=== PATIENT | female | born 1995 | race African-American/Black ===

== ENCOUNTER 2017-04-10 16:25 | Inpatient (IN) | payer OTHER ==
[2017-04-10] MEDS ORDERED: DEXTROSE 5%-LACTATED RINGERS 500 ML IV SCH ×2 (19:15→20:15)
[2017-04-10] MEDS ORDERED: ELECTROLYTE-148 SOLN 500 ML IV ONE (23:00)
[2017-04-10] MEDS ORDERED: CITRIC ACID/SODIUM CITRATE 30 ML UNIT-DOSE CUP PO ONE (23:30)
[2017-04-10 23:39] LABS: BASO % 0.2 % (0-2.0); HEMATOCRIT 31.7 % (32.4-45.2); HEMOGLOBIN 10.8 GM/dL (10.7-15.3); LYMPH % 24.8 % (8-40); MCH 30.8 pg (25.7-33.7); MCHC 34.1 g/dl (32.0-36.0); MEAN CELL VOLUME 90.5 fl (80-96); MEAN PLT VOLUME 7.6 fl (7.5-11.1); MONO % 9.9 % (3.8-10.2); NEUT % 63.1 % (42.8-82.8); PLATELET COUNT 258 K/MM3 (134-434); RDW 13.1 % (11.6-15.6); WHITE BLOOD COUNT 5.9 K/mm3 (4.0-10.0)
[2017-04-10] MEDS ORDERED: ONDANSETRON 4 MG/2 ML VIAL IVPUSH PRN (23:46)
[2017-04-10] MEDS ORDERED: morphine SULFATE/Preservative Free 0.5 MG/ML (1cc Syringe) EP ONE (23:46)
[2017-04-10] MEDS ORDERED: IBUPROFEN 800 MG/8 ML IJ IVPB PRN (23:48)
[2017-04-10 23:55] LABS: INR 0.9 (0.82-1.09); PROTHROMBIN TIME (PATIENT) 10.2 SEC (9.98-11.88)
[2017-04-10 23:56] VITALS: BMI 27.1
[2017-04-10 23:57] LABS: ACTIVATED PTT 24.7 SECONDS (26.9-34.4)
[2017-04-11] MEDS: ELECTROLYTE-148 SOLN 1,000 ML IV SCH
[2017-04-11 01:10] LABS: ANION GAP 9 (8-16); BLOOD UREA NITROGEN 3 mg/dL (7-18); CALCIUM 8.6 mg/dL (8.5-10.1); CHLORIDE 107 mmol/L (98-107); CO2 26 mmol/L (21-32); CREATININE 0.4 mg/dL (0.55-1.02); GLUCOSE,RANDOM 86 mg/dL (74-106); POTASSIUM 3.7 mmol/L (3.5-5.1); SODIUM 142 mmol/L (136-145)
--- NOTE | 2017-04-11 01:43 | HP ---
Past Medical History - Primary Care Physician PCP:: Yash Mott - Admission Chief Complaint: 39 weeks non reassuring FHR, for c/s History of Present Illness: 22 yo f edc by sono 04/16/17, c/o pelvic pressure and pain, multiple visit to L& D , cx clp, vx -4 mi , fhr cat 2, poor BTBv , induction vs c/s discussed , risks explained,requesting c/s declined induction History Source: Patient Limitations to Obtaining History: No Limitations - Past Medical History ...: 1 ...Para: 0 ...Term: 0 ...: 0 ...Spon : 0 ...Induced : 0 ...Multiple Gestation: 0 ...LMP: 07/10/16 ... Weeks Gestation by Dates: 39.1 ...EDC by Dates: 04/16/17 ...EDC by Sono: 04/16/17 Psych: Yes: Depression (on no meds) - Past Surgical History Hx Myomectomy: No Hx Transabdominal Cerclage: No - Smoking History Smoking history: Never smoked Have you smoked in the past 12 months: No - Alcohol/Substance Use Hx Alcohol Use: No - Social History Usual Living Arrangement: Yes: With Spouse Home Medications - Allergies Allergies/Adverse Reactions: Allergies Allergy/AdvReac Type Severity Reaction Status Date / Time No Known Allergies Allergy Verified 04/10/17 17:03 - Home Medications Home Medications: Ambulatory Orders Vit,Calc76/Iron/Folic [Pnv 29-1 Tablet] 1 tab PO DAILY 03/14/17 Review of Systems - Review of Systems Constitutional: reports: No Symptoms Eyes: reports: No Symptoms HENT: reports: No Symptoms Neck: reports: No Symptoms Cardiovascular: reports: No Symptoms Respiratory: reports: No Symptoms Gastrointestinal: reports: No Symptoms Genitourinary: reports: No Symptoms Breasts: reports: No Symptoms Reported Musculoskeletal: reports: No Symptoms Integumentary: reports: No Symptoms Neurological: reports: No Symptoms Endocrine: reports: No Symptoms Hematology/Lymphatic: reports: No Symptoms Psychiatric: reports: No Symptoms Physical Exam - Maternity Vital Signs: Vital Signs Temperature 99.5 F 04/10/17 23:31 Pulse Rate 102 H 04/10/17 23:31 Respiratory Rate 20 04/10/17 23:31 Blood Pressure 130/72 01/25/18 23:31 O2 Sat by Pulse Oximetry (%) Constitutional: Yes: Well Nourished, No Distress, Calm Eyes: Yes: WNL, Conjunctiva Clear, EOM Intact HENT: Yes: WNL, Atraumatic, Normocephalic Neck: Yes: WNL, Supple, Trachea Midline Cardiovascular: Yes: WNL, Regular Rate and Rhythm Breast(s): Yes: WNL - Abdominal Exam/OB Fundal Height: 40 Number of Fetuses: Single Presentation: Vertex Contractions: No Monitor Mode: External Heart Rate Location: [facility] Category: II Accelerations: None Decelerations: Variable - Vaginal Exam/OB Vaginal Bleediing: No Speculum Exam: No Dilatation (cm): closed Effacement (%): vx Amniotic Membrane Status: Intact Presentation: Vertex/Position Station: -4 - Physical Exam Musculoskeletal: Yes: WNL Extremities: Yes: WNL Edema: Yes Edema: LLE: Trace, RLE: Trace ...Motor Strength: WNL Psychiatric: Yes: WNL - Labs Lab Results: CBC, BMP 04/10/17 23:00 04/10/17 23:00 Hemorrhage Risk Assessment - Risk Factors Medium Risk Factors: Yes: None High Risk Factors: Yes: None Risk Score: 1 Risk Level: Medium Risk Problem List - Problems (1) with 39 completed weeks gestation Code(s): Z3A.39 - 39 WEEKS GESTATION OF (2) Non-reassuring heart rate or rhythm affecting management of fetus Code(s): ZMF3875 - Assessment/Plan c/s rba discussed
[2017-04-11] MEDS ORDERED: ceFAZolin SODIUM 1 GM VIAL ONE (01:50)
[2017-04-11] MEDS ORDERED: morphine SULFATE/Preservative Free 0.5 MG/ML (1cc Syringe) ONE (01:50)
[2017-04-11] MEDS ORDERED: METHYLERGONOVINE MALEATE 0.2 MG/1 ML AMP IM PRN (01:55)
[2017-04-11] MEDS ORDERED: oxyCODONE HCL 5 MG TABLET PO PRN ×2 (01:55)
[2017-04-11] MEDS ORDERED: BENZOCAINE 20% 57 GM BOTTLE TP PRN (01:55)
[2017-04-11] MEDS ORDERED: BENZOCAINE 28 GM HEMORRHOIDAL OINTMENT PR PRN (01:55)
[2017-04-11] MEDS ORDERED: WITCH HAZEL 50% (TUCKS) 40 PAD/JAR PAD TP PRN (01:55)
[2017-04-11] MEDS ORDERED: IBUPROFEN 800 MG/8 ML IJ IVPB PRN (01:55)
[2017-04-11] MEDS ORDERED: DEXTROSE 5%-LACTATED RINGERS 1,000 ML IV SCH (02:00)
[2017-04-11] MEDS ORDERED: CEFAZOLIN 1 GM/D5W 1 GM/50 ML BAG IVPB SCH (02:00)
[2017-04-11] MEDS ORDERED: OXYTOCIN 10 UNITS/ML VIAL ONE (02:13)
[2017-04-11] MEDS: OXYTOCIN 20 UNITS in 0.9% NS 20 UNIT/1,000 ML INFUS.BAG IV SCH ×3 (02:30→15:00)
[2017-04-11 03:10] LABS: ARTERIAL BLOOD GAS pH 7.37 (7.35-7.45)
[2017-04-11 03:11] LABS: ARTERIAL BLOOD GAS PCO2 45.3 mmHg (35-45)
[2017-04-11 03:12] LABS: ARTERIAL BLOOD GAS BASE EXCESS 0.2 meq/l (-2-2)
[2017-04-11 03:16] LABS: ARTERIAL BLOOD GAS PO2 16.6 mmHg (80-100)
[2017-04-11 03:18] LABS: VENOUS PC02 41.3 mmHg (38-52); VENOUS PH 7.39 (7.32-7.42)
[2017-04-11 03:19] LABS: VENOUS PO2 23.5 mmHg (28-48)
[2017-04-11] MEDS: diphenhydrAMINE HCL 25 MG CAPSULE (FP) PO PRN ×2 (03:45→15:51)
--- NOTE | 2017-04-11 08:21 | OP ---
DATE OF OPERATION: 04/11/2017 PREOPERATIVE DIAGNOSIS: , 39 weeks, nonreassuring heart rate. POSTOPERATIVE DIAGNOSIS: , 39 weeks, nonreassuring heart rate. PROCEDURE PERFORMED: Primary low-segment transverse section. SURGEON: Saige Mott MD SUPERVISOR ORCHARD: MELANY Isaac ANESTHESIA: Spinal. ANESTHESIOLOGIST: Kb Salgado M.D. ESTIMATED BLOOD LOSS: 500 mL. DESCRIPTION OF PROCEDURE: The patient was taken to the operating room and had adequate spinal anesthesia. Abdomen and perineum were prepped and draped. A Pfannenstiel abdominal skin incision. The abdominal wall was cut layer by layer, until the peritoneum was exposed and incised. Upon entering the abdominal cavity, the lower uterine segment was identified and uterovesical fold of peritoneum established. The bladder was pushed down. Then, with the lower blade of the Lorenzo retractor in the pelvis, a low transverse uterine incision was made. The incision was extended laterally with bandage scissors. The amniotic sac was entered. Clear fluid. Head delivered. Nasopharynx was suctioned, and live baby was delivered without any difficulty. The placenta was delivered manually. The uterine cavity was cleaned of all remaining tissue. The uterine incision was closed in 2 layers, the 1st layer with 0 Biosyn continuous suture and the 2nd layer with 0 Biosyn imbricating the 1st layer. The bladder flap was closed with 0 Biosyn continuous suture. Both tubes and ovaries were checked and were normal. No active bleeding was seen. All the lap, sponge and instrument counts were correct. Then the peritoneum was closed with 0 Biosyn continuous suture. The muscles were brought together with interrupted suture of 0 Biosyn. The fascia was closed with 0 Biosyn continuous suture, the subcutaneous fat with interrupted suture of 0 Biosyn, and the skin was closed with sergio. The patient tolerated the procedure well, and left the OR in good condition. SAIGE MOTT M.D. [id number]
[2017-04-11] MEDS: CEFAZOLIN 1 GM PUSH 1 GM/10 ML DISP.SYRIN IVPUSH SCH ×2 (09:36→17:40)
[2017-04-11] MEDS ORDERED: ENOXAPARIN NA (PORCINE) 40 MG/0.4 ML DISP.SYRIN SQ SCH (10:00)
[2017-04-11] MEDS: PRENATAL VITAMINS W/ FOLIC ACID TABLET (FP) PO SCH (10:23)
--- NOTE | 2017-04-11 10:54 | PN ---
Progress Note (short form) - Note Progress Note: Anesthesiology Post-op POD#1 s/p C/S under spinal anesthesia. Pt. feels well, denies h/a. She is able to move her legs and is making urine. VSS.
--- NOTE | 2017-04-11 12:01 | CON.PSY ---
Psychiatry Consult Chief Complaint: I felt depressed when I was 11yes old. Never took any meds or Hospitalized. I dont see any one now. - Previous Psychiatric Treatment Outpatient: None Inpatient: None - Previous Substance Abuse Treatment Outpatient: None Inpatient: None - Current Medications Current Medications: Active Medications Acetaminophen (Tylenol -) 650 mg PO Q6H PRN PRN Reason: PAIN LEVEL 4 - 6 Benzocaine (Americaine 20% Porum -) 1 spray TP PRN PRN PRN Reason: PAIN Benzocaine (Americaine Ointment -) 1 applic MT PRN PRN PRN Reason: PAIN Bisacodyl (Dulcolax Suppository -) 10 mg MT PRN PRN PRN Reason: CONSTIPATION Diphenhydramine HCl (Benadryl Injection -) 25 mg IVPUSH Q4H PRN PRN Reason: Pruritis Diphenhydramine HCl (Benadryl -) 25 mg PO Q8H PRN PRN Reason: FOR ITCHING Last Admin: 04/11/17 03:45 Dose: 25 mg Parenteral Electrolytes (Plasma-Lyte 148 -) 1,000 mls @ 125 mls/hr IV ASDIR [facility] Last Admin: 04/11/17 00:00 Dose: 125 mls/hr Dextrose/Lactated Ringer's (D5-Lr -) 1,000 mls @ 125 mls/hr IV ASDIR [facility] Cefazolin Sodium (Ancef -) 1 gm in 10 mls @ 100 mls/hr IVPUSH 1000,1800 [facility] Stop: 04/11/17 18:05 Last Admin: 04/11/17 09:36 Dose: 100 mls/hr Ibuprofen (Caldolor Injection -) 600 mg IVPB Q8H PRN PRN Reason: FEVER Ibuprofen (Motrin -) 600 mg PO Q4H PRN PRN Reason: PAIN Ibuprofen (Caldolor Injection -) 800 mg IVPB Q6H PRN PRN Reason: PAIN Methylergonovine Maleate (Methergine Injection -) 0.2 mg IM Q4H PRN PRN Reason: EXCESSIVE BLEEDING Ondansetron HCl (Zofran Injection) 4 mg IVPUSH Q4H PRN PRN Reason: NAUSEA Oxycodone HCl (Roxicodone -) 5 mg PO Q4H PRN PRN Reason: PAIN LEVEL 1-5 Oxycodone HCl (Roxicodone -) 10 mg PO Q4H PRN PRN Reason: PAIN LEVEL 6-10 Multivit/Folic Acid/Iron ( Vitamins (Sjr) -) 1 tab PO DAILY GRIS Last Admin: 04/11/17 10:23 Dose: Not Given Senna/Docusate Sodium (Pericolace -) 2 tablet PO HS PRN PRN Reason: CONSTIPATION Simethicone (Mylicon -) 80 mg PO Q4H PRN PRN Reason: GAS Witch Hemalatha/Glycerin (Tucks Pads -) 1 pad TP PRN PRN PRN Reason: PAIN - Allergies Allergies: Allergies Allergy/AdvReac Type Severity Reaction Status Date / Time No Known Allergies Allergy Verified 04/10/17 17:03 - Current Living Status Usual Living Arrangement: With Parent - Current Mental Status Evaluation Appearance: Well Groomed Attitude: Cooperative - Mood Mood: Euthymic - Speech/Language Expressive: Coherent - Psychomotor Activity Psychomotor Activity: Normal - Thought Process Thought Process: Intact - Thought Content Hallucinations: Absent Delusions: Absent - Self Perception Self Perception: No Impairment - Cognition Attention: Alert Orientation: Time Memory, Immediate Recall: Intact Memory, Short Term: 3/3 Memory, Remote with Promptin/3 - Concentration Serial Sevens Intact: Yes Simple Calculations Intact: Yes - Abstraction Proverb Interpretation: Intact Judgement: Intact - Insight Insight: Intact - Impulse Control Impulse Control: Good Control - Suicidal Ideation Suicidal Ideation: No - Homicidal Ideation Homicidal Ideation: No Assessment/Plan 1) patient do not have any depression or other psych problems. 2) Discharge home when medically stable.
[2017-04-11] MEDS: IBUPROFEN 600 MG TABLET (FP) PO PRN (19:47)
[2017-04-11] MEDS: ACETAMINOPHEN 325 MG TABLET (FP) PO PRN (19:48)
[2017-04-12] MEDS: ELECTROLYTE-148 SOLN 1,000 ML IV SCH (00:29)
[2017-04-12] MEDS: IBUPROFEN 600 MG TABLET (FP) PO PRN ×5 (00:35→21:51)
[2017-04-12] MEDS: SIMETHICONE 80 MG TAB.CHEW (FP) PO PRN ×5 (00:35→21:51)
[2017-04-12] MEDS: ACETAMINOPHEN 325 MG TABLET (FP) PO PRN ×4 (00:36→17:17)
[2017-04-12] MEDS ORDERED: BISACODYL 10 MG SUPP.RECT PR PRN (01:55)
--- NOTE | 2017-04-12 08:02 | PN ---
Post Progress Note - Subjective Subjective: c/o pain scale 5/10 voided after fields is taken out Post Day: 1 Type of Delivery: Primary C/S Vital Signs: Vital Signs Temperature 98.6 F 04/12/17 02:00 Pulse Rate 78 04/12/17 06:00 Respiratory Rate 18 04/12/17 06:00 Blood Pressure 120/73 04/12/17 06:00 O2 Sat by Pulse Oximetry (%) 99 04/11/17 03:45 Breast Exam: Yes: Soft. No: Engorged Uterus: Yes: Fundus Firm, Fundus below umbilicus Incision: Yes: Dressing dry and intact. No: Redness, Oozing Abdomen/GI: Yes: Abdomen soft (bs active ), Tolerating PO (clear liquids ). No : Abdominal Distention, Tender, Passing flatus Lochia: Yes: Rubra Lochia, amount: Moderate Extremities: Yes: Calves non-tender Perineum: Yes: Intact Activity: Other (oob to bathroom ) - Labs Labs: CBC WBC 5.9 K/mm3 (4.0-10.0) D 04/10/17 23:00 RBC 3.50 M/mm3 (3.60-5.2) L D 04/10/17 23:00 Hgb 10.8 GM/dL (10.7-15.3) D 04/10/17 23:00 Hct 31.7 % (32.4-45.2) L D 04/10/17 23:00 MCV 90.5 fl (80-96) 04/10/17 23:00 MCH 30.8 pg (25.7-33.7) 04/10/17 23:00 MCHC 34.1 g/dl (32.0-36.0) 04/10/17 23:00 RDW 13.1 % (11.6-15.6) 04/10/17 23:00 Plt Count 258 K/MM3 (134-434) D 04/10/17 23:00 MPV 7.6 fl (7.5-11.1) 04/10/17 23:00 Neutrophils % 63.1 % (42.8-82.8) 04/10/17 23:00 Lymphocytes % 24.8 % (8-40) D 04/10/17 23:00 Monocytes % 9.9 % (3.8-10.2) 04/10/17 23:00 Eosinophils % 2.0 % (0-4.5) D 04/10/17 23:00 Basophils % 0.2 % (0-2.0) 04/10/17 23:00 Other Findings, Remarks: RS cta i/o adequate Problem List - Problems (1) delivery, delivered, current hospitalization Code(s): O82 - ENCOUNTER FOR DELIVERY WITHOUT INDICATION Assessment/Plan ass stable s/p primary c/section plan encourage po fluids, ambulation & deep breathing po cbc pending
[2017-04-12 08:48] LABS: BASO % 0.3 % (0-2.0); EOS % 1.8 % (0-4.5); HEMATOCRIT 30.4 % (32.4-45.2); LYMPH % 16.3 % (8-40); MCH 29.8 pg (25.7-33.7); MEAN CELL VOLUME 90.3 fl (80-96); MEAN PLT VOLUME 7.4 fl (7.5-11.1); MONO % 8.6 % (3.8-10.2); PLATELET COUNT 228 K/MM3 (134-434); RBC 3.37 M/mm3 (3.60-5.2); RDW 13.2 % (11.6-15.6); WHITE BLOOD COUNT 9.6 K/mm3 (4.0-10.0)
[2017-04-12] MEDS: PRENATAL VITAMINS W/ FOLIC ACID TABLET (FP) PO SCH (09:42)
[2017-04-12] MEDS: SENNOSIDES/DOCUSATE COMBO (SENNA PLUS) TABLET (UD) PO PRN (21:52)
--- NOTE | 2017-04-13 08:39 | PN ---
Post Progress Note - Subjective Subjective: c/o pain scale 5/10, gaseous discomfort less Post Day: 2 Type of Delivery: Primary C/S Vital Signs: Vital Signs Temperature 98.3 F 04/12/17 22:00 Pulse Rate 92 H 04/12/17 22:00 Respiratory Rate 18 04/12/17 22:00 Blood Pressure 135/69 04/12/17 22:00 O2 Sat by Pulse Oximetry (%) 99 04/11/17 03:45 Breast Exam: Yes: Soft, Other (not BF ). No: Engorged Uterus: Yes: Fundus Firm, Fundus below umbilicus, Non-tender Incision: Yes: Mirian intact. No: Redness, Oozing Abdomen/GI: Yes: Abdomen soft, Passing flatus (bm not done ), Tolerating PO ( diet). No: Abdominal Distention, Tender Lochia: Yes: Rubra Lochia, amount: Moderate Extremities: Yes: Calves non-tender Perineum: Yes: Intact Activity: Ambulating - Labs Labs: CBC WBC 9.6 K/mm3 (4.0-10.0) D 04/12/17 08:00 RBC 3.37 M/mm3 (3.60-5.2) L 04/12/17 08:00 Hgb 10.0 GM/dL (10.7-15.3) L 04/12/17 08:00 Hct 30.4 % (32.4-45.2) L 04/12/17 08:00 MCV 90.3 fl (80-96) 04/12/17 08:00 MCH 29.8 pg (25.7-33.7) 04/12/17 08:00 MCHC 33.0 g/dl (32.0-36.0) 04/12/17 08:00 RDW 13.2 % (11.6-15.6) 04/12/17 08:00 Plt Count 228 K/MM3 (134-434) 04/12/17 08:00 MPV 7.4 fl (7.5-11.1) L 04/12/17 08:00 Neutrophils % 73.0 % (42.8-82.8) 04/12/17 08:00 Lymphocytes % 16.3 % (8-40) D 04/12/17 08:00 Monocytes % 8.6 % (3.8-10.2) 04/12/17 08:00 Eosinophils % 1.8 % (0-4.5) 04/12/17 08:00 Basophils % 0.3 % (0-2.0) 04/12/17 08:00 Problem List - Problems (1) delivery, delivered, current hospitalization Code(s): O82 - ENCOUNTER FOR DELIVERY WITHOUT INDICATION Assessment/Plan po day #2 stable plan : ct po care
[2017-04-13] MEDS: IBUPROFEN 600 MG TABLET (FP) PO PRN ×3 (10:15→21:11)
[2017-04-13] MEDS: PRENATAL VITAMINS W/ FOLIC ACID TABLET (FP) PO SCH (10:17)
[2017-04-13] MEDS: ACETAMINOPHEN 325 MG TABLET (FP) PO PRN ×2 (10:17→16:57)
[2017-04-13] MEDS: SIMETHICONE 80 MG TAB.CHEW (FP) PO PRN ×3 (10:18→21:10)
[2017-04-14] MEDS: IBUPROFEN 600 MG TABLET (FP) PO PRN ×2 (07:35→21:28)
[2017-04-14] MEDS: ACETAMINOPHEN 325 MG TABLET (FP) PO PRN ×2 (07:36→21:31)
[2017-04-14] MEDS: SIMETHICONE 80 MG TAB.CHEW (FP) PO PRN ×2 (07:37→21:28)
[2017-04-14 08:27] LABS: BASO % 0.5 % (0-2.0); EOS % 5.3 % (0-4.5); HEMATOCRIT 30.4 % (32.4-45.2); HEMOGLOBIN 10.2 GM/dL (10.7-15.3); LYMPH % 31.9 % (8-40); MCH 30.3 pg (25.7-33.7); MCHC 33.5 g/dl (32.0-36.0); MEAN CELL VOLUME 90.3 fl (80-96); MEAN PLT VOLUME 7.2 fl (7.5-11.1); NEUT % 54.3 % (42.8-82.8); PLATELET COUNT 263 K/MM3 (134-434); RBC 3.36 M/mm3 (3.60-5.2); RDW 13.2 % (11.6-15.6); WHITE BLOOD COUNT 5.6 K/mm3 (4.0-10.0)
[2017-04-14] MEDS: PRENATAL VITAMINS W/ FOLIC ACID TABLET (FP) PO SCH (09:08)
--- NOTE | 2017-04-14 11:33 | PN ---
Post Progress Note - Subjective Subjective: c/o pain scale 7/10 incision site Post Day: 3 Type of Delivery: Primary C/S Vital Signs: Vital Signs Temperature 98.4 F 04/14/17 07:30 Pulse Rate 83 04/14/17 07:30 Respiratory Rate 20 04/14/17 07:30 Blood Pressure 115/69 04/14/17 07:30 O2 Sat by Pulse Oximetry (%) 99 04/11/17 03:45 Breast Exam: Yes: Soft, Other (not BF ). No: Engorged Uterus: Yes: Fundus Firm, Fundus below umbilicus Incision: Yes: Mirian intact. No: Redness, Oozing Abdomen/GI: Yes: Abdomen soft, Passing flatus (bm done ), Tolerating PO (diet). No: Abdominal Distention, Tender Lochia, amount: Moderate Extremities: Yes: Calves non-tender Perineum: Yes: Intact Activity: Ambulating - Labs Labs: CBC WBC 5.6 K/mm3 (4.0-10.0) D 04/14/17 08:05 RBC 3.36 M/mm3 (3.60-5.2) L 04/14/17 08:05 Hgb 10.2 GM/dL (10.7-15.3) L 04/14/17 08:05 Hct 30.4 % (32.4-45.2) L 04/14/17 08:05 MCV 90.3 fl (80-96) 04/14/17 08:05 MCH 30.3 pg (25.7-33.7) 04/14/17 08:05 MCHC 33.5 g/dl (32.0-36.0) 04/14/17 08:05 RDW 13.2 % (11.6-15.6) 04/14/17 08:05 Plt Count 263 K/MM3 (134-434) 04/14/17 08:05 MPV 7.2 fl (7.5-11.1) L 04/14/17 08:05 Neutrophils % 54.3 % (42.8-82.8) D 04/14/17 08:05 Lymphocytes % 31.9 % (8-40) D 04/14/17 08:05 Monocytes % 8.0 % (3.8-10.2) 04/14/17 08:05 Eosinophils % 5.3 % (0-4.5) H D 04/14/17 08:05 Basophils % 0.5 % (0-2.0) 04/14/17 08:05 Problem List - Problems (1) delivery, delivered, current hospitalization Code(s): O82 - ENCOUNTER FOR DELIVERY WITHOUT INDICATION Assessment/Plan stable . discharge tomorrow.
[2017-04-14] MEDS: SENNOSIDES/DOCUSATE COMBO (SENNA PLUS) TABLET (UD) PO PRN (21:31)
[2017-04-15 08:37] VITALS: BP 134/76; PULSE 76; TEMP 98.5
--- NOTE | 2017-04-15 09:37 | DS ---
Physical Exam-ROUTE CARRIER Vital Signs: Vital Signs Temperature 98.5 F 04/15/17 08:30 Pulse Rate 76 04/15/17 08:30 Respiratory Rate 20 04/15/17 08:30 Blood Pressure 134/76 04/15/17 08:30 O2 Sat by Pulse Oximetry (%) 99 04/11/17 03:45 Constitutional: Yes: Well Nourished Eyes: Yes: Conjunctiva Clear HENT: Yes: Atraumatic Neck: Yes: Supple Cardiovascular: Yes: Regular Rate and Rhythm Respiratory: Yes: Regular Gastrointestinal: Yes: Normal Bowel Sounds External Genitalia: Yes: Normal Vaginal Exam: Yes: Normal Cervix: Yes: Normal Uterus: Yes: Firm Extremities: Yes: WNL Wound/Incision: Yes: Well Approximated, [place] Intact Neurological: Yes: Alert, Oriented ...Motor Strength: WNL Psychiatric: Yes: Alert, Oriented Labs: CBC, BMP 04/14/17 08:05 04/10/17 23:00 Delivery - Delivery Type of Anesthesia: Spinal Episiotomy/Laceration: None EBL (cc): 500 Delivery, Single - Stages of Labor Date 1st Stage Initiatied: 04/10/17 Time 1st Stage Initiated: 14:00 Date of Delivery: 04/11/17 Time of Delivery: 02:14 Time Placenta Delivered: 02:15 - Condition of Infant Manager Pharmacy/Dynamicist Present: Yes Name: Brant Kam Gender: Female Weight: 7 lb Position: Right, OT Total Hours ROM (Hrs/Mins): 2min - 1 Minute Total Score: 9 5 Minutes Total Score: 9 - Feeding Plan Initial Plan: Exclusive throughout hospitalization Discharge Summary Reason For Visit: ADMIT FOR C/SECTION Current Active Problems delivery, delivered, current hospitalization (Acute) Non-reassuring heart rate or rhythm affecting management of fetus (Acute) with 39 completed weeks gestation (Acute) Procedures: Principal: Primary Low Transverse C-Setion Hospital Course: Routine Post op care Condition: Good - Instructions Diet, Activity, Other Instructions: Regular diet No driving, no lifting x 4 weeks F/U in clinic in 1 week Disposition: HOME - Home Medications Comprehensive Discharge Medication List: Ambulatory Orders Vit,Calc76/Iron/Folic [Pnv 29-1 Tablet] 1 tab PO DAILY 03/14/17
[2017-04-15] MEDS: IBUPROFEN 600 MG TABLET (FP) PO PRN (10:13)
[2017-04-15] MEDS: ACETAMINOPHEN 325 MG TABLET (FP) PO PRN (10:15)
[2017-04-15] MEDS: PRENATAL VITAMINS W/ FOLIC ACID TABLET (FP) PO SCH (10:15)
[2017-04-15] MEDS: SIMETHICONE 80 MG TAB.CHEW (FP) PO PRN (10:15)
--- NOTE | 2017-04-18 16:59 | PATH ---
Surgical Pathology Report Patient Name: LYNDSEY RAMIREZ [facility]. Rec. #: [id number] /Age/Gender: 1995 (Age: 22) / F Account: [id number] Location: [facility] OBS/SCREEN STRETCHER Taken: 04/11/2017 Received: 04/11/2017 Reported: 04/18/2017 Physicians: Yash Mott M.D. Specimen(s) Received PLACENTA Clinical History , 39 weeks 2 days, primary Final Diagnosis PLACENTA, SECTION: 542 g THIRD TRIMESTER PLACENTA WITH TRIVASCULAR UMBILICAL CORD AND UNREMARKABLE PLACENTAL MEMBRANES. Electronically Signed Leida Blackburn M.D. Gross Description The specimen is received fresh labeled placenta and is a 542 gram, 19.0 x 14.5 x 3.0 cm. placenta with attached membranes and umbilical cord. The attached membranes are becerra, translucent with focal opacities and insert marginally. The umbilical cord measures 16 cm. in length and averages 1 cm. in diameter. The cord inserts centrally. No true knots or strictures are identified. Cut surface of the umbilical cord reveals 3 vessels. The surface is helton blue with moderate fibrin deposition and appropriate caliber vessels. The maternal surface is red-brown with focal defects. Sectioning reveals red-brown, spongy parenchyma. No lesions are identified. Elementary Assistant Principal sections are submitted in three cassettes as follows: 1- membrane rolls and umbilical cord; 2-3- full thickness sections of placenta. /04/12/2017 [facility]04/12/2017
== END 2017-04-15 14:00 | disposition home or self-care (01) | DRG 540 ==
LOC: JDEL 16:25 → JLDR 23:00 → J3W 04-11 04:33
PROVIDERS: ADMIT Obstetrics & Gynecology; ATTEND Obstetrics & Gynecology
PROC: 10D00Z1 Extraction of Products of Conception, Low, Open Approach (ICD-10-PCS; principal; 2017-04-11)
DX: O76 Abnormality in fetal heart rate and rhythm complicating labor and delivery (principal); Z3A.39 39 weeks gestation of pregnancy; Z37.0 Single live birth
CPT/HCPCS: 36415; 36600; 76819-TC; 80048; 82803; 85025; 85610; 85730; 86593; 86850; 86900; 86901; 88307-TC

== ENCOUNTER 2019-01-11 15:32 | Emergency (ER) | payer OTHER ==
[2019-01-11 15:44] VITALS: BP 120/73; PULSE 74; TEMP 98; BMI 16.2
--- NOTE | 2019-01-11 16:32 | PDOC ---
Documentation entered by Christin Castañeda SCRIBE, acting as scribe for Bert Kovacs MD. Bert Kovacs MD: This documentation has been prepared by the Garry reyes Aiswarya, SCRIBE, under my direction and personally reviewed by me in its entirety. I confirm that the documentation accurately reflects all work, treatment, procedures, and medical decision making performed by me. History of Present Illness - General Chief Complaint: Pain Stated Complaint: LUMP ON STOMACH FOR A WHILE Time Seen by Provider: 01/11/19 15:51 History Source: Patient Exam Limitations: No Limitations - History of Present Illness Initial Comments: 01/11/19 17:02 The patient is a 23 year old female, with no significant PMH, who presents to the emergency department with a lump to the abdomen. The patient describes the lump as mobile and mild pain located laterally from the umbilicus. She states lump has increased in size and came into the ER for further evaluation. Patient states she had a few years ago. The patient denies chest pain , shortness of breath, headache and dizziness. Denies fever, chills, nausea, vomit, diarrhea and constipation. Allergies: NKDA Past surgical history: Social history: None reported PCP: None reported Past History - Past Medical History Allergies/Adverse Reactions: Allergies Allergy/AdvReac Type Severity Reaction Status Date / Time No Known Allergies Allergy Verified 01/11/19 15:39 Home Medications: Ambulatory Orders NK [No Known Home Medication] 01/11/19 Asthma: No Cancer: No Cardiac Disorders: No COPD: No Diabetes: No HTN: No Seizures: No Thyroid Disease: No - Immunization History Immunization Up to Date: Yes - Psycho Social/Smoking Cessation Hx Smoking History: Never smoked Have you smoked in the past 12 months: No Hx Alcohol Use: No Drug/Substance Use Hx: No Substance Use Type: Marijuana Hx Substance Use Treatment: No Review of Systems - Review of Systems Able to Perform ROS?: Yes Comments:: 01/11/19 17:02 A complete review of 10 out of 10 review of systems is taken and is negative apart from what is previously mentioned below and in the HPI. *Physical Exam - Vital Signs Last Vital Signs Temp Pulse Resp BP Pulse Ox 98 F 74 18 120/73 100 01/11/19 15:38 01/11/19 15:38 01/11/19 15:38 01/11/19 15:38 01/11/19 15:38 - Physical Exam Comments: 01/11/19 17:02 Vitals: Triage Vital signs reviewed Chest Wall: Nontender Cardiac: Regular rate and rhythm, no murmurs, no rubs, no gallops, Lungs: Clear to auscultation bilateral, good air movement bilaterally, Abdomen: +small 0.5 cm lipoma to the abdomen superior and lateral to the umbilicus mobile , non tender non erythematous, and non cellulitis. Rectal: Exam deferred Extremities: Full range of motion to all extremities, no cyanosis, clubbing, or edema Skin: Warm and dry, no rashes or lesions, no petechiae Neuro: AOX3; Cranial Nerves 2-12 grossly c intact, Strength intact to all extremities, Sensation intact to all extremities. Psych: normal mood, normal affect Medical Decision Making - Medical Decision Making 01/11/19 16:30 Small mobile lump superior and laterally to the umbilicus likely lipoma no redness erythema We will recommend follow-up in our [facility] as well as surgical referral should patient desire removal Findings, the need for follow-up and strict return instructions discussed with patient. Discharge - Discharge Information Problems reviewed: Yes Clinical Impression/Diagnosis: Lipoma Qualifiers: Lipoma location: trunk Qualified Code(s): D17.1 - Benign lipomatous neoplasm of skin and subcutaneous tissue of trunk Condition: Good Disposition: HOME - Admission No - Follow up/Referral Referrals: Billy Rizzo MD [Staff Physician] - [facility] [place] [facility] [Provider Group] - Patient Discharge Instructions Patient Printed Discharge Instructions: Lipoma Additional Instructions: Follow-up with Dr. Rizzo should you desire removal of lipoma. Follow-up with the [facility] within 1 week for establishment of primary care Return to ED for any severe symptoms or for any concerns. - Post Discharge Activity
== END 2019-01-11 16:37 | disposition home or self-care (01) ==
LOC: FER 15:32
DX: D17.1 Benign lipomatous neoplasm of skin and subcutaneous tissue of trunk (principal)
CPT/HCPCS: 99282-25

== ENCOUNTER 2020-09-07 18:38 | Emergency (ER) | payer OTHER ==
[2020-09-07 18:59] VITALS: BP 114/79; PULSE 103; TEMP 98.2; BMI 18.3
[2020-09-07 20:57] LABS: BASO % 0.5 % (0-2.0); EOS % 1.5 % (0-4.5); HEMATOCRIT 37.2 % (32.4-45.2); HEMOGLOBIN 12.8 GM/dL (10.7-15.3); MCH 30.4 pg (25.7-33.7); MCHC 34.4 g/dl (32.0-36.0); MEAN CELL VOLUME 88.2 fl (80-96); MEAN PLT VOLUME 7.6 fl (7.5-11.1); MONO % 7.5 % (3.8-10.2); NEUT % 58.5 % (42.8-82.8); PLATELET COUNT 270 10^3/uL (134-434); RBC 4.22 M/mm3 (3.60-5.2); RDW 13.5 % (11.6-15.6); WHITE BLOOD COUNT 4.7 K/mm3 (4.0-10.0)
[2020-09-07 21:18] LABS: ALBUMIN 3.3 g/dl (3.4-5.0); CALCIUM 7.6 mg/dL (8.5-10.1)
[2020-09-07 21:20] LABS: BLOOD UREA NITROGEN 8.2 mg/dL (7-18)
[2020-09-07 21:23] LABS: BILIRUBIN,TOTAL 0.3 mg/dL (0.2-1); CREATININE 0.4 mg/dL (0.55-1.3); TOT PROT 5.7 g/dl (6.4-8.2)
[2020-09-07 21:38] LABS: EPI CELLS 21 /uL (0-25.1); HYALINE CASTS 1 /uL (0-3.1); URINE APPEARANCE CLEAR; URINE BACTERIA 215 /uL (0-1359); URINE BILIRUBIN NEGATIVE (NEGATIVE); URINE COLOR YELLOW; URINE GLUCOSE (UA) NEGATIVE (NEGATIVE); URINE KETONE TRACE (NEGATIVE); URINE LEUK ESTERASE TRACE (NEGATIVE); URINE NITRITE NEGATIVE (NEGATIVE); URINE PROTEIN NEGATIVE (NEGATIVE); URINE RBC 11 /uL (0-23.9); URINE WBC 14 /uL (0-25.8)
[2020-09-07] MEDS ORDERED: NITROFURANTOIN MACROCRYSTAL 50 MG CAPSULE (FP) PO SCH (22:45)
[2020-09-07 22:48] LABS: URINE CRYSTALS FEW /hpf
== END 2020-09-07 23:41 | disposition home or self-care (01) ==
LOC: JER 18:38
DX: O20.8 Other hemorrhage in early pregnancy (principal); Z3A.01 Less than 8 weeks gestation of pregnancy
CPT/HCPCS: 36415; 76817-TC; 80053; 81003; 84702; 85025; 86850; 86900; 86901; 87086; 99284-25

== ENCOUNTER 2020-12-20 12:14 | Emergency (ER) | payer OTHER ==
[2020-12-20 12:22] VITALS: BP 102/65; PULSE 98; TEMP 98.1; BMI 21.2
[2020-12-20] MEDS ORDERED: ACETAMINOPHEN 500 MG TABLET (FP) PO ONE (13:22)
[2020-12-20] MEDS ORDERED: ACETAMINOPHEN 500 MG TABLET (FP) ONE (13:24)
== END 2020-12-20 13:30 | disposition home or self-care (01) ==
LOC: JERFT 12:14
DX: K08.89 Other specified disorders of teeth and supporting structures (principal)
CPT/HCPCS: 99283-25

== ENCOUNTER 2021-04-19 13:20 | Inpatient (IN) | payer OTHER ==
[2021-04-19] MEDS: ELECTROLYTE-148 SOLN 1,000 ML IV SCH (13:45)
[2021-04-19] MEDS ORDERED: CITRIC ACID/SODIUM CITRATE 30 ML UNIT-DOSE CUP PO ONE (13:46)
[2021-04-19 14:10] VITALS: BMI 27.3
[2021-04-19] MEDS ORDERED: ceFAZolin SODIUM 1 GM VIAL ONE ×2 (14:48→18:17)
[2021-04-19] MEDS ORDERED: OXYTOCIN 10 UNITS/ML VIAL ONE (14:48)
[2021-04-19] MEDS ORDERED: ONDANSETRON 4 MG/2 ML VIAL ONE (14:48)
[2021-04-19] MEDS ORDERED: KETOROLAC TROMETHAMINE 30 MG/1 ML VIAL ONE (14:48)
[2021-04-19] MEDS ORDERED: ONDANSETRON 4 MG/2 ML VIAL IVPUSH PRN (15:38)
[2021-04-19] MEDS ORDERED: METHYLERGONOVINE MALEATE 0.2 MG/1 ML AMP IM PRN (16:23)
[2021-04-19] MEDS ORDERED: ACETAMINOPHEN 325 MG TABLET (FP) PO PRN (16:23)
[2021-04-19] MEDS ORDERED: PROMETHAZINE HCL 25 MG/1 ML VIAL IVPUSH ONE (17:20)
[2021-04-19] MEDS ORDERED: PROMETHAZINE HCL 25 MG/1 ML VIAL ONE (17:21)
[2021-04-19] MEDS: OXYTOCIN 20 UNITS in 0.9% NS 20 UNIT/1,000 ML INFUS.BAG IV SCH (17:40)
[2021-04-19] MEDS ORDERED: OXYTOCIN 20 UNITS in 0.9% NS 20 UNIT/1,000 ML INFUS.BAG IV ONE (17:41)
[2021-04-19 17:42] LABS: COCAINE, UR NEGATIVE (NEGATIVE); METHADONE, UR NEGATIVE (NEGATIVE); OPIATES, URI NEGATIVE (NEGATIVE); PHENCYCLIDINE,URINE NEGATIVE (NEGATIVE); URINE AMPHETAMINES NEGATIVE (NEGATIVE); URINE BARBITURATES NEGATIVE (NEGATIVE); URINE BENZODIAZEPINES NEGATIVE (NEGATIVE)
[2021-04-19] MEDS ORDERED: CEFAZOLIN 1 GM/D5W 1 GM/50 ML BAG IVPB SCH (18:00)
[2021-04-19] MEDS ORDERED: DEXTROSE 5%-WATER - 50 ML IVPB ONE (18:17)
[2021-04-19] MEDS: CEFAZOLIN 1 GM in DEXTROSE 5%-WATER - 1 GM/50 ML IVPB IVPB SCH (18:19)
[2021-04-20] MEDS ORDERED: DEXTROSE 5%-WATER - 50 ML IVPB ONE ×2 (01:51→09:23)
[2021-04-20] MEDS ORDERED: ceFAZolin SODIUM 1 GM VIAL ONE ×2 (01:51→09:23)
[2021-04-20] MEDS: CEFAZOLIN 1 GM in DEXTROSE 5%-WATER - 1 GM/50 ML IVPB IVPB SCH ×2 (02:03→09:30)
[2021-04-20] MEDS: OXYTOCIN 20 UNITS in 0.9% NS 20 UNIT/1,000 ML INFUS.BAG IV SCH ×2 (03:59→22:14)
[2021-04-20] MEDS ORDERED: oxyCODONE HCL 5 MG TABLET PO PRN ×2 (04:23)
[2021-04-20] MEDS: SIMETHICONE 80 MG TAB.CHEW (FP) PO PRN ×3 (06:33→22:00)
[2021-04-20] MEDS: IBUPROFEN 600 MG TABLET (FP) PO PRN ×3 (06:33→21:59)
[2021-04-20 06:59] LABS: BASO % 0.3 % (0-2.0); EOS % 0.8 % (0-4.5); HEMATOCRIT 27.8 % (32.4-45.2); HEMOGLOBIN 9.1 GM/dL (10.7-15.3); LYMPH % 12.8 % (8-40); MCH 28.2 pg (25.7-33.7); MCHC 32.6 g/dl (32.0-36.0); MEAN CELL VOLUME 86.6 fl (80-96); MEAN PLT VOLUME 7.3 fl (7.5-11.1); MONO % 9.8 % (3.8-10.2); NEUT % 76.3 % (42.8-82.8); PLATELET COUNT 241 10^3/uL (134-434); RBC 3.21 M/mm3 (3.60-5.2); RDW 14.6 % (11.6-15.6)
[2021-04-20] MEDS: ENOXAPARIN NA (PORCINE) 40 MG/0.4 ML DISP.SYRIN SQ SCH (09:30)
[2021-04-20] MEDS ORDERED: DIPHTH,PERTUSS(ACELL),TET 0.5 ML DISP.SYRIN IM ONE (10:00)
[2021-04-20] MEDS ORDERED: BISACODYL 10 MG SUPP.RECT RC PRN (16:23)
[2021-04-20] MEDS ORDERED: SENNOSIDES/DOCUSATE COMBO (SENNA PLUS) TABLET (UD) PO PRN (22:03)
[2021-04-20] MEDS: ELECTROLYTE-148 SOLN 1,000 ML IV SCH (22:11)
[2021-04-21] MEDS: IBUPROFEN 600 MG TABLET (FP) PO PRN (06:28)
[2021-04-21] MEDS: SIMETHICONE 80 MG TAB.CHEW (FP) PO PRN (06:28)
[2021-04-21] MEDS: ENOXAPARIN NA (PORCINE) 40 MG/0.4 ML DISP.SYRIN SQ SCH (10:20)
[2021-04-21 15:01] VITALS: BP 131/77; PULSE 99; TEMP 97.3
== END 2021-04-21 14:35 | disposition home or self-care (01) | DRG 540 ==
LOC: JLDR 13:20 → J3W 18:02
PROVIDERS: ADMIT Obstetrics & Gynecology; ATTEND Obstetrics & Gynecology
PROC: 10D00Z1 Extraction of Products of Conception, Low, Open Approach (ICD-10-PCS; principal; 2021-04-19)
DX: O34.211 Maternal care for low transverse scar from previous cesarean delivery (principal); Z3A.39 39 weeks gestation of pregnancy; Z37.0 Single live birth
CPT/HCPCS: 36415; 80048; 80307; 85025; 85610; 85730; 86780; 86850; 86900; 86901; 88307-TC; 90715; C9803; U0003; U0005